=== PATIENT | male | born 1975 | race Caucasian/White ===

== ENCOUNTER 2019-01-22 08:29 | Day surgery (SDC) | payer OTHER ==
[~2019-01-22 08:29] MED LIST: DEXAMETHASONE 4 MG/ML 5 ML INJ
[2019-01-22] MEDS ORDERED: FENTAnyl 50 MCG/ML VIAL ×2 (09:37→10:38)
[2019-01-22] MEDS ORDERED: MIDAZOLAM 1 MG/ML 2 ML INJ (09:38)
[2019-01-22] MEDS ORDERED: PROPOFOL 20 ML ×2 (09:38→10:39)
[2019-01-22] MEDS ORDERED: LIDOCAINE 2% (SDV) 5 ML INJ (09:38)
[2019-01-22] MEDS ORDERED: ONDANSETRON 4 MG INJ (09:38)
[2019-01-22] MEDS ORDERED: METOCLOPRAMIDE 10 MG INJ (09:39)
[2019-01-22] MEDS ORDERED: CEFAZOLIN 1 GM INJ (09:40)
[2019-01-22] MEDS ORDERED: HYDROmorphONE 1 MG/5 ML IV SYRINGE IV ×2 (10:30)
[2019-01-22] MEDS ORDERED: hydrALAzine 20 MG INJ IV (10:30)
[2019-01-22] MEDS ORDERED: MEPERIDINE 25 MG INJ IV (10:30)
[2019-01-22] MEDS ORDERED: ONDANSETRON 4 MG INJ IV (10:30)
[2019-01-22] MEDS ORDERED: FENTAnyl 50 MCG/ML VIAL IV ×2 (10:30)
[2019-01-22] MEDS ORDERED: LABETALOL HCL 20MG INJ IV (10:30)
[2019-01-22] MEDS ORDERED: DIPHENHYDRAMINE 50 MG INJ IV (10:30)
[2019-01-22] MEDS ORDERED: KETOROLAC 30 MG INJ IV (10:30)
[2019-01-22] MEDS ORDERED: BUPIVACAINE 0.25% (MPF) 30 ML INJ (10:38)
[2019-01-22] MEDS: BUPIVACAINE 0.25% (MPF) 30 ML INJ INJ ×2 (10:42→11:11)
[2019-01-22] MEDS ORDERED: PROVENTIL HFA 6.7GM INHALER ×2 (10:50)
[2019-01-22] MEDS: HYDROmorphONE 1 MG/5 ML IV SYRINGE IV (11:23)
== END 2019-01-22 12:20 | disposition home or self-care (01) ==
LOC: SDS 08:29
DX: Z30.2 Encounter for sterilization (principal); E66.01 Morbid (severe) obesity due to excess calories; Z68.41 Body mass index [BMI] 40.0-44.9, adult
CPT/HCPCS: 55250; 88304

== ENCOUNTER 2019-03-03 09:49 | Day surgery (SDC) | payer OTHER ==
[2019-03-03 10:32] LABS: INR 0.83; PROTIME 11.5 Sec (11.9-14.9); PT RATIO 0.9
[2019-03-03 10:33] LABS: PARTIAL THROMBOPLASTIN TIME 27.5 Sec (23.0-35.0)
[2019-03-03] MEDS: LACTATED RINGER'S 1,000 ML IV (10:40)
[2019-03-03] MEDS ORDERED: HYDROmorphONE 1 MG/5 ML IV SYRINGE IV (13:00)
[2019-03-03] MEDS ORDERED: DIPHENHYDRAMINE 50 MG INJ IV (13:00)
[2019-03-03] MEDS ORDERED: MEPERIDINE 25 MG INJ IV (13:00)
[2019-03-03] MEDS ORDERED: OXYCODONE/ACETAMINOPHEN (5/325) TAB PO (13:00)
[2019-03-03] MEDS ORDERED: ROCURONIUM 50 MG INJ (13:00)
[2019-03-03] MEDS ORDERED: DESFLURANE 15 MIN (13:00)
[2019-03-03] MEDS ORDERED: ALBUTEROL 0.083% (NEB) 2.5 MG/3 ML AMP HHN (13:00)
[2019-03-03] MEDS ORDERED: ONDANSETRON 4 MG INJ IV (13:00)
[2019-03-03] MEDS ORDERED: FENTAnyl 50 MCG/ML VIAL IV ×2 (13:00)
[2019-03-03] MEDS ORDERED: METOCLOPRAMIDE 10 MG INJ IV (13:00)
[2019-03-03] MEDS ORDERED: FENTAnyl 50 MCG/ML VIAL (13:13)
[2019-03-03] MEDS ORDERED: SUCCINYLCHOLINE CHLORIDE 100 MG/5 ML SYG IV (13:31)
[2019-03-03] MEDS ORDERED: LIDOCAINE 100 MG SYRINGE (13:31)
[2019-03-03] MEDS ORDERED: PROVENTIL HFA 6.7GM INHALER (13:31)
[2019-03-03] MEDS ORDERED: CEFAZOLIN 1 GM INJ (13:31)
[2019-03-03] MEDS ORDERED: PROPOFOL 40 ML (13:31)
[2019-03-03] MEDS ORDERED: SUGAMMADEX SODIUM 200 MG/2 ML VIAL IV (13:31)
[2019-03-03] MEDS ORDERED: LABETALOL HCL 20MG INJ (13:34)
[2019-03-03] MEDS ORDERED: hydrALAzine 20 MG INJ (13:37)
[2019-03-03] MEDS: ROPIVACAINE 0.5 % 30 ML VIAL INJ (14:11)
[2019-03-03] MEDS: HYDROmorphONE 1 MG/5 ML IV SYRINGE IV ×3 (14:22→15:01)
[2019-03-03] MEDS: FENTAnyl 50 MCG/ML VIAL IV ×2 (14:32→14:40)
[2019-03-03] MEDS ORDERED: ROPIVACAINE 0.5 % 30 ML VIAL (15:04)
[2019-03-03] MEDS ORDERED: morphine 2 MG INJ IV (16:00)
[2019-03-03] MEDS: KETOROLAC 30 MG INJ IV (16:12)
== END 2019-03-03 16:55 | disposition home or self-care (01) ==
LOC: SDS 09:49
DX: M23.221 Derangement of posterior horn of medial meniscus due to old tear or injury, right knee (principal); M23.200 Derangement of unspecified lateral meniscus due to old tear or injury, right knee; M94.261 Chondromalacia, right knee; I10 Essential (primary) hypertension
CPT/HCPCS: 29880; 82306; 85610; 85730